=== PATIENT | male | born 1980 | race African-American/Black ===

== ENCOUNTER 2016-11-10 10:11 | Emergency (ER) | payer OTHER ==
[2016-11-10 10:16] VITALS: BP 133/86; PULSE 74; TEMP 98; BMI 26.6
[2016-11-10] MEDS ORDERED: KETOROLAC TROMETHAMINE 60 MG/2 ML VIAL ONE (10:51)
[2016-11-10] MEDS ORDERED: KETOROLAC TROMETHAMINE 60 MG/2 ML VIAL IM ONE (10:58)
--- NOTE | 2016-11-10 11:05 | PDOC ---
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 Patient complains of low back pain and mild spasm. Denies problems with bowel or bladder, denies numbness or tingling to hands or feet however has significant pain to the lumbar spine and lower paravertebral muscles. Occurred: reports: just prior to arrival, this morning Severity: reports: mild, moderate Pain Location: reports: back Method of Injury: Yes: direct blow, fall Modifying Factors: improves with: None Associated Symptoms (Fall): denies symptoms Past History - Travel Traveled outside of the country in the last 30 days: Yes Close contact w/someone who was outside of country & ill: Yes - Past Medical History Allergies/Adverse Reactions: Allergies Allergy/AdvReac Type Severity Reaction Status Date / Time No Known Allergies Allergy Verified 11/10/14 19:33 Home Medications: Ambulatory Orders Cyclobenzaprine HCl [Flexeril 10 mg] 10 mg PO BID PRN #14 tablet 11/10/16 Naproxen [Naprosyn -] 500 mg PO BID #30 tablet 11/10/16 Other medical history: none - Immunization History Td Vaccination: Yes (3) Immunization Up to Date: Yes - Psycho/Social/Smoking Cessation Hx Anxiety: No Suicidal Ideation: No Smoking Status: No Smoking History: Never smoked Have you smoked in the past 12 months: No Number of Cigarettes Smoked Daily: 0 Information on smoking cessation initiated: No Hx Alcohol Use: No Drug/Substance Use Hx: No Substance Use Type: Alcohol Trauma Specific PMHX - Complaint Specific PMHX Back Injury: Yes Neck Injury: No Review of Systems - Review of Systems Able to Perform ROS?: Yes Is the patient limited Yemeni proficient: Yes Constitutional: Yes: Symptoms Reported, See HPI, Malaise. No: Chills, Fever HEENTM: Yes: See HPI. No: Symptoms Reported Respiratory: Yes: See HPI. No: Symptoms reported, Cough, Shortness of Breath, Wheezing ABD/GI: No: Symptoms Reported Musculoskeletal: Yes: Symptoms Reported, See HPI, Back Pain, Joint Pain, Muscle Pain Neurological: Yes: See HPI. No: Symptoms reported, Headache All Other Systems: Reviewed and Negative *Physical Exam - Vital Signs Last Vital Signs Temp Pulse Resp BP Pulse Ox 98.0 F 74 18 133/86 100 11/10/16 10:14 11/10/16 10:14 11/10/16 10:14 11/10/16 10:14 11/10/16 10:14 - Physical Exam General Appearance: Yes: Nourished, Appropriately Dressed, Apparent Distress, Mild Distress HEENT: positive: RHYS, Normal ENT Inspection, TMs Normal, Pharynx Normal (3) Neck: positive: Supple. negative: Tender Respiratory/Chest: positive: Lungs Clear, Normal Breath Sounds Gastrointestinal/Abdominal: positive: Normal Bowel Sounds, Soft. negative: Tender Musculoskeletal: positive: Decreased Range of Motion, Muscle Spasm, Vertebral Tenderness (faint to L3 for 5). negative: Normal Inspection (faint swelling, and abrasion to midpoint back at LS-spine approximately L3 for. Has some mild range of motion difficulty secondary to tenderness at this site. With palpable spasm noted bilaterally), CVA Tenderness (L) Extremity: positive: Normal Capillary Refill, Normal Inspection. negative: Normal Range of Motion Integumentary: positive: Normal Color, Dry, Warm Neurologic: positive: mat linker II-XII NML intact, Fully Oriented, Alert, Normal Mood/ Affect, Normal Response, Motor Strength 5/5 ED Treatment Course - RADIOLOGY Radiology Studies Ordered: Category Date Time Status SPINE-LUMBAR SACRAL [RAD] Stat Radiology 11/10/16 10:58 Ordered Progress Note - Progress Note Progress Note: Xray NEG x-ray negative for fracture. Back contusion and spasm, we will treat with NSAIDs and cyclobenzaprine *DC/Admit/Observation/Transfer Diagnosis at time of Disposition: Back pain at L4-L5 level, Muscle spasm - Discharge Dispostion Disposition: HOME Condition at time of disposition: Stable Admit: No - Prescriptions Prescriptions: Cyclobenzaprine HCl [Flexeril 10 mg] 10 mg PO BID PRN #14 tablet PRN Reason: spasm Naproxen [Naprosyn -] 500 mg PO BID #30 tablet - Referrals Referrals: Saurabh Troy MD [Primary Care Provider] - - Patient Instructions Printed Discharge Instructions: DI for Back Strain or Sprain, DI for Contusion Additional Instructions: Rest, no heavy lifting or exercise until pain is resolved Hot soaks to neck and low back as often as possible/hot showers or Jacuzzis No massage or therapy until spasm is gone Continue ibuprofen 2-200 mg tablets every 6 hours for the next 3 days then as needed for pain and swelling Cyclobenzaprine 1-10mg every 8 hours as needed for spasm If not significant improvement within 24 hours with medication and rest regime, followup with private physician for change in medications and /or therapy. - Post Discharge Activity Work/School Note: Back to Work
[2016-11-10] MEDS ORDERED: CYCLOBENZAPRINE HCL 10 MG TABLET (FP) PO ONE (11:37)
== END 2016-11-10 11:47 | disposition home or self-care (01) ==
LOC: JERFT 10:11
PROC: 3E0233Z Introduction of Anti-inflammatory into Muscle, Percutaneous Approach (ICD-10-PCS; principal; 2016-11-10)
DX: M54.5 Low back pain (principal); M62.830 Muscle spasm of back
CPT/HCPCS: 72100-TC; 99281-25

== ENCOUNTER 2021-02-11 14:38 | Emergency (ER) | payer OTHER ==
[2021-02-11 15:03] VITALS: BP 111/72; PULSE 65; TEMP 98; BMI 26.6
[2021-02-11] MEDS ORDERED: ASPIRIN 81 MG CHEWABLE TABLETS PO ONE (15:53)
[2021-02-11] MEDS ORDERED: ASPIRIN 81 MG CHEWABLE TABLETS ONE (16:08)
[2021-02-11 17:06] LABS: BASO % 1.5 % (0-2.0); EOS % 11.5 % (0-4.5); HEMATOCRIT 43.3 % (35.4-49); HEMOGLOBIN 14.2 GM/dL (11.7-16.9); LYMPH % 32.9 % (8-40); MCH 27.1 pg (25.7-33.7); MCHC 32.8 g/dl (32.0-35.9); MEAN CELL VOLUME 82.8 fl (80-96); MEAN PLT VOLUME 7.4 fl (7.5-11.1); MONO % 8.7 % (3.8-10.2); NEUT % 45.4 % (42.8-82.8); PLATELET COUNT 260 10^3/uL (134-434); RBC 5.23 M/mm3 (4.00-5.60); RDW 12.7 % (11.9-15.9); WHITE BLOOD COUNT 5.3 K/mm3 (4.0-10.0)
[2021-02-11 17:26] LABS: INR 1.03 (0.83-1.09); PROTHROMBIN TIME (PATIENT) 12.1 SEC (9.7-13.0)
[2021-02-11 17:29] LABS: ACTIVATED PTT 29.7 SECONDS (25.2-36.5)
[2021-02-11 17:42] LABS: CHLORIDE 102 mmol/L (98-107); SODIUM 139 mmol/L (136-145)
[2021-02-11 17:44] LABS: CALCIUM 9.1 mg/dL (8.5-10.1)
[2021-02-11 17:45] LABS: ANION GAP 5 MMOL/L (8-16); BLOOD UREA NITROGEN 14.4 mg/dL (7-18); CO2 32 mmol/L (21-32); GLUCOSE,RANDOM 70 mg/dL (74-106); MAGNESIUM 2.2 mg/dL (1.8-2.4)
[2021-02-11 17:48] LABS: SGOT/AST 38 U/L (15-37); SGPT/ALT 36 U/L (13-61)
[2021-02-11 17:49] LABS: BILIRUBIN,TOTAL 0.7 mg/dL (0.2-1)
[2021-02-11 17:51] LABS: ALK PHOS 65 U/L (45-117)
== END 2021-02-11 18:11 | disposition home or self-care (01) ==
LOC: JER 14:38
DX: R07.89 Other chest pain (principal)
CPT/HCPCS: 36415; 71046-TC-FY; 80053; 82550; 82553; 83735; 84484; 85025; 85610; 85730; 93005; 93010; 99285-25